=== PATIENT | female | born 1985 | race Caucasian/White ===

== ENCOUNTER 2019-01-28 15:30 | Emergency (ER) | payer SELFPAY ==
[~2019-01-28] VITALS: Ht 167.6 cm; Wt 80.0 kg
[~2019-01-28 15:30] MED LIST: LOP25 PO
[2019-01-28] MEDS ORDERED: KETOROLAC 30MG/ML VIAL IM ONE (18:30)
[2019-01-28 19:47] VITALS: BP 132/87
== END 2019-01-28 19:49 | disposition home or self-care (01) ==
LOC: ER 15:30
DX: M25.531 Pain in right wrist (principal); R20.2 Paresthesia of skin; X50.0XXA Overexertion from strenuous movement or load, initial encounter; Y93.89 Activity, other specified; Y92.89 Other specified places as the place of occurrence of the external cause; Y99.0 Civilian activity done for income or pay
CPT/HCPCS: 73110; 81025; 96372; 99283; J1885

== ENCOUNTER 2021-12-13 09:00 | Emergency (ER) | payer MEDICAID ==
[~2021-12-13] VITALS: Ht 167.6 cm; Wt 89.0 kg
[2021-12-13] MEDS ORDERED: IBUPROFEN 800MG TABLET PO ONE (10:45)
[2021-12-13] MEDS ORDERED: CHLORHEXIDINE GLUCONATE 0.12% MOUTHWASH UDC SSP SCH (10:45)
[2021-12-13 11:43] VITALS: BP 136/89
[2021-12-13] MEDS ORDERED: BENZ1LOZ MM (12:00)
[2021-12-13] MEDS ORDERED: IBUP-2029 MT (12:00)
== END 2021-12-13 12:15 | disposition home or self-care (01) ==
LOC: ER 09:00
DX: J02.9 Acute pharyngitis, unspecified (principal); H92.03 Otalgia, bilateral
CPT/HCPCS: 87070; 87430; 99283

== ENCOUNTER 2022-08-31 20:20 | Emergency (ER) | payer SELFPAY ==
[~2022-08-31] VITALS: Ht 170.2 cm; Wt 85.4 kg
[~2022-08-31 20:20] MED LIST changes: +BENZ1LOZ MM; +IBUP-2029 MT
[2022-08-31 20:29] VITALS: BP 151/104
== END 2022-09-01 03:05 | disposition home or self-care (01) ==
LOC: ER 20:42
DX: R00.2 Palpitations (principal); Z79.899 Other long term (current) drug therapy
CPT/HCPCS: 93005; 99283

== ENCOUNTER 2022-09-27 19:11 | Emergency (ER) | payer SELFPAY ==
[~2022-09-27] VITALS: Ht 162.6 cm; Wt 81.8 kg
[2022-09-27 19:14] VITALS: BP 152/94
[2022-09-27] MEDS ORDERED: ASPIRIN 81MG TABLET PO ONE (19:45)
[2022-09-27 20:08] LABS: BASOPHILS % 0.8 % (0.0-2.0); EOSINOPHILS % 2.7 % (0.0-5.0); HEMATOCRIT. 42.8 % (36.0-48.0); HEMOGLOBIN. 15.2 g/dL (12.0-16.0); LYMPHOCYTES % 21.9 % (20.0-50.0); MEAN CORPUSCULAR HEMOGLOBIN 31.4 pg (28.0-32.0); MEAN CORPUSCULAR VOLUME 88.2 fL (81.0-99.0); MEAN PLATELET VOLUME 9.6 fl (7.4-10.4); MONOCYTES % 7.8 % (2.0-8.0); NEUTROPHILS % 66.8 % (40.0-76.0); PLATELET 289 x1000/uL (130-400); RED BLOOD CELL COUNT 4.85 mill/uL (4.2-5.4); RED CELL DISTRIBUTION WIDTH 12.4 % (11.6-14.6)
[2022-09-27 20:13] LABS: CHLORIDE 109 mEq/L (98-107)
[2022-09-27 20:26] LABS: INR 1.3; PARTIAL THROMBOPLASTIN TIME 25.7 sec (23.4-31.0); PROTHROMBIN TIME 13.4 sec (9.6-11.0)
[2022-09-27 23:37] LABS: CLARITY URINE CLOUDY (CLEAR); COLOR URINE YELLOW (YELLOW); KETONES URINE 2+ (NEGATIVE); LEUKOCYTE ESTERASE URINE 3+ (NEGATIVE); NITRITE URINE NEGATIVE (NEGATIVE); OCCULT BLOOD URINE NEGATIVE (NEGATIVE); PH URINE 8.5 (4.5-8.0); PROTEIN URINE TRACE (NEGATIVE); SPECIFIC GRAVITY URINE 1.016 (1.005-1.030)
[2022-09-27 23:50] LABS: UCG SCREEN NEGATIVE
== END 2022-09-27 23:03 | disposition home or self-care (01) ==
LOC: ER 19:11
DX: R07.89 Other chest pain (principal); Z79.899 Other long term (current) drug therapy
CPT/HCPCS: 36415; 71045; 80053; 81003; 81025; 84484; 85025; 85610; 85730; 93005; 99285; Z7610

== ENCOUNTER 2022-10-12 02:24 | Emergency (ER) | payer SELFPAY ==
[~2022-10-12] VITALS: Ht 167.6 cm; Wt 81.6 kg
[2022-10-12 03:21] LABS: CHLORIDE 109 mEq/L (98-107)
[2022-10-12 03:23] LABS: BASOPHILS % 0.8 % (0.0-2.0); EOSINOPHILS % 3.3 % (0.0-5.0); HEMOGLOBIN. 15.1 g/dL (12.0-16.0); LYMPHOCYTES % 18.6 % (20.0-50.0); MEAN CORPUSCULAR HEMOGLOBIN 31.1 pg (28.0-32.0); MEAN CORPUSCULAR VOLUME 86.7 fL (81.0-99.0); MONOCYTES % 8.3 % (2.0-8.0); PLATELET 295 x1000/uL (130-400); RED BLOOD CELL COUNT 4.84 mill/uL (4.2-5.4); RED CELL DISTRIBUTION WIDTH 12.6 % (11.6-14.6)
[2022-10-12] MEDS: SODIUM CHLORIDE 0.9% 1,000 ML IV NR ×3 (04:17→05:45)
[2022-10-12] MEDS ORDERED: IOHEXOL-350 100 ML BOTTLE ONE (05:27)
[2022-10-12 06:39] VITALS: BP 125/80
== END 2022-10-12 07:00 | disposition home or self-care (01) ==
LOC: ER 02:24
DX: R91.8 Other nonspecific abnormal finding of lung field (principal); R07.89 Other chest pain; R00.2 Palpitations
CPT/HCPCS: 36415; 71045; 71275; 80053; 81025; 84484; 85025; 85379; 93005; 99285; Q9967